=== PATIENT | female | born 1995 | race Caucasian/White ===

== ENCOUNTER 2017-03-21 16:04 | Emergency (ER) | payer OTHER ==
[2017-03-21] MEDS ORDERED: DEXAMETHASONE 10 MG/ML VIAL IVP ONE (17:39)
[2017-03-21] MEDS ORDERED: KETOROLAC 30 MG/1 ML SDV IVP ONE (17:39)
[2017-03-21] MEDS ORDERED: METOCLOPRAMIDE 10 MG/2 ML VIAL IVP ONE (17:39)
[2017-03-21] MEDS ORDERED: NS 1,000 ML IV ONE (17:39)
--- NOTE | 2017-03-21 17:43 | EDPHY ---
H & P Stated Complaint: yamileth tired/03/12 tood 5 of her paxil/denies si at this time Time Seen by Provider: 03/21/17 17:28 HPI/ROS: CHIEF COMPLAINT: Headache, dizziness, nausea HISTORY OF PRESENT ILLNESS: The patient is a 21-year-old female with a history of anorexia, bulimia and anxiety who comes to the emergency department complaining of a mild headache, flashes of light in her vision, dizziness and nausea. Her boyfriend is with her and states that she took an overdose of her Paxil on the . She takes this daily for anxiety 10 mg. for some reason they do not wish to disclose, on the she was having severe anxiety and ended up taking 100 mg worth of tablets. She denies that this was a suicidal gesture. The next day she had a headache, nausea, dizziness and visual changes. She stayed in bed and felt better by the . Over this weekend she attended a football game and did not have enough water to drink and was on the hot field all day. She again developed headache, dizziness and nausea. She has been trying to drink fluids but her symptoms have persisted for the last 3 days. She has no difficulty walking. Her head anorexia and bulimia have not been a problem recently. She does not have a history of migraines. My recent fevers or infections. REVIEW OF SYSTEMS: Constitutional: denies: chills, fever, recent illness, recent injury EENTM: See HPI, denies: blurred vision, double vision, nose congestion Respiratory: denies: cough, shortness of breath Cardiac: denies: chest pain, irregular heart rate, lightheadedness, palpitations Gastrointestinal/Abdominal: See HPI denies: abdominal pain, diarrhea, vomiting , blood streaked stools Genitourinary: denies: dysuria, frequency, hematuria, pain Musculoskeletal: denies: joint pain, muscle pain Skin: denies: lesions, rash, jaundice, bruising Neurological: See HPI denies: numbness, paresthesia, tingling, dizziness, weakness Hematologic/Lymphatic: denies: blood clots, easy bleeding, easy bruising Immunologic/allergic: denies: HIV/AIDS, transplant EXAM: GENERAL: Well-appearing, thin and in no acute distress. HEAD: Atraumatic, normocephalic. EYES: Pupils equal round and reactive to light, extraocular movements intact, sclera anicteric, conjunctiva are normal. ENT: TMs normal, nares patent, oropharynx clear without exudates. Moist mucous membranes. NECK: Normal range of motion, supple without lymphadenopathy or JVD. LUNGS: Breath sounds clear to auscultation bilaterally and equal. No wheezes rales or rhonchi. HEART: Regular rate and rhythm without murmurs, rubs or gallops. ABDOMEN: Soft, nontender, normoactive bowel sounds. No guarding, no rebound. No masses appreciated. BACK: No CVA tenderness, no spinal tenderness, step-offs or deformities EXTREMITIES: Normal range of motion, no pitting or edema. No clubbing or cyanosis. NEUROLOGICAL: Cranial nerves II through XII grossly intact. Normal speech, normal gait. 5/5 strength, normal movement in all extremities, normal sensation PSYCH: Normal mood, normal affect. SKIN: Warm, dry, normal turgor, no visible rashes or lesions. Source: Patient Exam Limitations: No limitations - Personal History LMP (Females 10-55): Now Current Tetanus/Diphtheria Vaccine: Yes - Medical/Surgical History Hx Asthma: No Hx Chronic Respiratory Disease: No Hx Diabetes: No Hx Cardiac Disease: No Hx Renal Disease: No Hx Cirrhosis: No Hx Alcoholism: No Hx HIV/AIDS: No Hx Splenectomy or Spleen Trauma: No Other PMH: anorexia/bulimia, anxiety - Family History Significant Family History: No pertinent family hx - Social History Smoking Status: Never smoked Alcohol Use: Sober Drug Use: None Constitutional: Initial Vital Signs Temperature (C) 37 C 03/21/17 16:46 Heart Rate 88 03/21/17 16:46 Respiratory Rate 18 03/21/17 16:46 Blood Pressure 145/81 H 03/21/17 16:46 O2 Sat (%) 97 03/21/17 16:46 O2 Delivery Mode Room Air Allergies/Adverse Reactions: Cephalosporins Allergy (Verified 03/21/17 16:44) Home Medications: Medication Instructions Recorded PARoxetine HCL 03/21/17 Medical Decision Making - Diagnostics EKG Interpretation: An EKG obtained and was read and documented in trace view. Please see trace view for full reading and report. Sinus rhythm, no acute ischemic changes or interval abnormalities Imaging: Discussed imaging studies w/ nursing assistant Radiologist ED Course/Re-evaluation: 5:50 p.m. for his spoke with poison control, her case #[id number]. She is no longer in any danger from the Paxil overdose on the . She has not been taking her Paxil regularly since that time and she may be having some withdrawal symptoms. I will also obtain an EKG and check for Tylenol or aspirin overdose. She denies having had a repeat Paxil overdose. I will also obtain head CT since this is a new and unusual headache for her. She does not have a history of migraines. 8:45 p.m. the patient feels completely better. She is eager to go home. She declines further workup or treatment. She is relieved with the results thus far. I filled out her international insurance form. Differential Diagnosis: Partial list of the Differential diagnosis considered include but were not limited to; migraine, overdose, withdrawal and although unlikely based on the history and physical exam, I also considered trauma, meningitis. I discussed these differential diagnoses and the plan with the patient as well as the usual and expected course. The patient understands that the diagnosis is provisional and that in medicine we are not always correct and that further workup is often warranted. Usual and customary warnings were given. All of the patient's questions were answered. The patient was instructed to return to the emergency department should the symptoms at all worsen or return, otherwise to followup with the physician as we discussed. - Data Points Laboratory Results: Laboratory Results 03/21/17 18:11 03/21/17 18:11 Medications Given: Discontinued Medications Dexamethasone (Decadron Injection) 10 mg IVP EDNOW ONE Stop: 03/21/17 17:40 Last Admin: 03/21/17 18:37 Dose: 10 mg Sodium Chloride (Ns) 1,000 mls @ 0 mls/hr IV ONCE ONE; Wide Open PRN Reason: Protocol Stop: 03/21/17 17:40 Last Admin: 03/21/17 18:36 Dose: 1,000 mls Ketorolac Tromethamine (Toradol) 30 mg IVP EDNOW ONE Stop: 03/21/17 17:40 Last Admin: 03/21/17 18:37 Dose: 30 mg Metoclopramide HCl (Reglan Injection) 10 mg IVP EDNOW ONE Stop: 03/21/17 17:40 Last Admin: 03/21/17 18:37 Dose: 10 mg Departure - Departure Disposition: Home, Routine, Self-Care Clinical Impression: Migraine Qualifiers: Migraine type: with aura Status migrainosus presence: without status migrainosus Intractability: not intractable Qualified Code(s): G43.109 - Migraine with aura, not intractable, without status migrainosus Condition: Fair Instructions: Migraine Headache (ED) Referrals: NONE *PRIMARY CARE P,. [Primary Care Provider] - As per Instructions Stuart Chu MD [[facility] [place] Primary Care Provider] - As per Instructions
--- NOTE | 2017-03-21 17:56 | CPEKG ---
Heart Rate: 64 RR Interval: 938 P-R Interval: 156 QRSD Interval: 82 QT Interval: 424 QTC Interval: 438 P [place]: 55 QRS [place]: 72 T Wave [place]: 46 EKG Severity - NORMAL ECG - EKG Impression: SINUS RHYTHM Electronically Signed By: Jaspal Walker 21-Mar-2017 18:05:08
[2017-03-21 18:24] LABS: % IMMATURE GRANULYOCYTES 0.3 % (0.0-1.1); ABSOLUTE IMMATURE GRANULOCYTES 0.03 10^3/uL (0.00-0.10); ADD DIFF? NO; ADD MORPH? NO; ADD SCAN? NO; ATYPICAL LYMPHOCYTE FLAG 60 (0-99); FRAGMENT RBC FLAG 0 (0-99); HEMATOCRIT 45.9 % (38.0-47.0); HEMOGLOBIN 15.1 g/dL (12.6-16.3); LEFT SHIFT FLG 0 (0-99); LIPEMIA HEMOLYSIS FLAG 80 (0-99); MEAN CELL HEMOGLOBIN 29.7 pg (27.9-34.1); MEAN CELL HEMOGLOBIN CONCENTR. 32.9 g/dL (32.4-36.7); MEAN CELL VOLUME 90.2 fL (81.5-99.8); MEAN PLATELET VOLUME 10.3 fL (8.7-11.7); PLATELET CLUMPS FLAG 0 (0-99); PLATELET COUNT 294 10^3/uL (150-400); RED BLOOD CELL COUNT 5.09 10^6/uL (4.18-5.33); RED CELL DISTRIBUTION WIDTH 13.2 % (11.5-15.2)
[2017-03-21 18:39] LABS: ANION GAP 15 mEq/L (8-16); CALCIUM 9.3 mg/dL (8.5-10.4); CARBON DIOXIDE 21 mEq/l (22-31); CHLORIDE 103 mEq/L (97-110); CREATININE 0.7 mg/dL (0.6-1.0); GLOMERULAR FILTRATION RATE > 60; GLUCOSE 74 mg/dL (70-100); POTASSIUM 4.1 mEq/L (3.5-5.2); SALICYLATE < 1.0 mg/dL (2.0-20.0); SODIUM 139 mEq/L (134-144)
[2017-03-21 19:32] VITALS: RESP 16
[2017-03-21 21:09] VITALS: BP 114/75; PULSE 60; TEMP 97.5; O2SAT 97
== END 2017-03-21 21:08 | disposition home or self-care (01) ==
DX: G43.109 Migraine with aura, not intractable, without status migrainosus (principal); E86.9 Volume depletion, unspecified
CPT/HCPCS: 96374; G0480; J1100; J1885; J2765